=== PATIENT | female | born 1990 | race Caucasian/White ===

== ENCOUNTER 2018-07-12 21:22 | Emergency (ER) | payer OTHER ==
[2018-07-12 22:03] LABS: APPEARANCE,URINE SLIGHTLY-CLOUDY; BILIRUBIN,URINE NEGATIVE (NEGATIVE); COLOR,URINE YELLOW; GLUCOSE, URINE NEGATIVE (NEGATIVE); KETONES,URINE NEGATIVE (NEGATIVE); LEUKOCYTE ESTERASE,URINE NEGATIVE (NEGATIVE); NITRITE,URINE NEGATIVE (NEGATIVE); PROTEIN,URINE NEGATIVE (NEGATIVE); URINE SPECIFIC GRAVITY 1.018; UROBILINOGEN,URINE NEGATIVE mg/dL (<2.0)
--- NOTE | 2018-07-12 23:07 | ER Document Report ---
ED Medical Screen (RME) - General Chief Complaint: Vag Bleeding, +preg <12wks Stated Complaint: VAGINAL BLEEDING,CRAMPING Time Seen by Provider: 07/12/18 23:03 Notes: 28-year-old female LMP May 23 presents to the emergency de partment for a couple of days of spotting that is gotten worse. She states she has a history of 2 miscarriages and has 2 living children. She states that her blood type is A+ confirmed from previous pregnancies. She is also complaining of UTI symptoms that include frequency and flank pain. She says this pattern is typical of previous UTIs. I have greeted and performed a rapid initial assessment of this patient. A comprehensive ED assessment and evaluation of the patient, analysis of test results and completion of medical decision making process will be conducted by an additional ED providers. TRAVEL OUTSIDE OF THE [place] IN LAST 30 DAYS: No Physical Exam - Vital signs Vitals: Temp Pulse Resp BP Pulse Ox 98.6 F 70 18 99/61 L 99 07/12/18 21:48 07/12/18 21:48 07/12/18 21:48 07/12/18 21:48 07/12/18 21:48 - Respiratory Respiratory status: No respiratory distress Chest status: Nontender Breath sounds: Normal Chest palpation: Normal - Cardiovascular Rhythm: Regular Heart sounds: Normal auscultation, S1 appreciated, S2 appreciated Murmur: No - Abdominal Bowel sounds: Normal Course - Vital Signs Vital signs: Temp Pulse Resp BP Pulse Ox 98.6 F 70 18 99/61 L 99 07/12/18 21:48 07/12/18 21:48 07/12/18 21:48 07/12/18 21:48 07/12/18 21:48 - Laboratory Laboratory results interpreted by me: 07/12/18 21:45 Urine Blood SMALL H Urine HCG, Qual POSITIVE H
[2018-07-12 23:31] LABS: ABSOLUTE EOSINOPHILS # (AUTO) 0.2 10^3/uL (0.0-0.6); ABSOLUTE LYMPHOCYTES (AUTO) 3.1 10^3/uL (0.5-4.7); ABSOLUTE MONOCYTES (AUTO) 0.6 10^3/uL (0.1-1.4); BASOPHILS % (AUTO) 0.2 % (0-2); EOSINOPHILS % (AUTO) 1.9 % (0-6); HEMATOCRIT 38.5 % (36.0-47.0); HEMOGLOBIN 13.4 g/dL (12.0-15.5); LYMPHOCYTES % (AUTO) 34.4 % (13-45); MEAN CORPUSCULAR HEMOGLOBIN 28.3 pg (27.0-33.4); MEAN CORPUSCULAR HGB CONC 34.7 g/dL (32.0-36.0); MEAN CORPUSCULAR VOLUME 82 fl (80-97); PLATELET COUNT 183 10^3/uL (150-450); RED BLOOD COUNT 4.72 10^6/uL (3.72-5.28); RED CELL DISTRIBUTION WIDTH 14.4 % (11.5-14.0); SEGMENTED NEUTROPHILS % (AUTO) 56.5 % (42-78); TOTAL CELLS COUNTED % (AUTO) 100 %; WHITE BLOOD COUNT 8.9 10^3/uL (4.0-10.5)
--- NOTE | 2018-07-13 00:50 | RADIOLOGY REPORT (SQ) ---
EXAM DESCRIPTION: US TRANSVAGINAL COMPLETED DATE/TME: 07/12/2018 23:03 CLINICAL HISTORY: 28 years, Female, vaginal bleeding COMPARISON: None. TECHNIQUE: Transverse and longitudinal transvaginal sonographic images of the pelvis and a first trimester patient LIMITATIONS: None. FINDINGS: Uterus measures 10 x 6 x 6 cm. There is an intrauterine gestational sac with pole and yolk sac. heart tones obtained at 122 bpm. The maternal right ovary measures 2.6 x 1.8 x 1.9 cm, the left 2.3 x 1.0 x 1.3 cm. Normal flow to each ovary. No adnexal cyst or mass. No free fluid in the pelvis. Current ultrasound age is 6 weeks 3 days based on a mean crown-rump length of 0.64 cm. There is a small area of diminished echogenicity adjacent to the gestational sac measuring 1.3 x 1.3 x 0.5 cm which may reflect small subchorionic hemorrhage. IMPRESSION: Single live intrauterine gestation with current ultrasound age 6 weeks 3 days. Probable small subchorionic hemorrhage. Continued obstetric follow-up recommended copyright 2010 [employer]- All Rights Reserved
--- NOTE | 2018-07-13 01:19 | ER Document Report ---
ED General - General Chief Complaint: Vag Bleeding, +preg <12wks Stated Complaint: VAGINAL BLEEDING,CRAMPING Time Seen by Provider: 07/12/18 23:03 Primary Care Provider: JOSÉ SANDS MD [Primary Care Provider] - Follow up as needed Notes: Patient is a 28-year-old female at 6 weeks by LMP who presents with c oncerns of vaginal bleeding. Patient also reports a diffuse, mild, cramping pain to her lower abdomen. Symptoms started earlier today, have resolved since that time. States that she was concerned that she was having a miscarriage as she has had 2 nothing was noted to improve or worsen her symptoms. States the bleeding was spotting. Denies any fever or constitutional symptoms. No lightheadedness or syncope. Has not seen her MANAGER SCHEDULING regarding today's concerns. TRAVEL OUTSIDE OF THE [place] IN LAST 30 DAYS: No - Related Data Allergies/Adverse Reactions: mycins Allergy (Mild, Uncoded 07/13/18 01:12) Past Medical History - General Information source: Patient Last Menstrual Period: 05/23/18 - Social History Smoking Status: Never Smoker Frequency of alcohol use: None Drug Abuse: None Lives with: Spouse/Significant other Family History: Reviewed & Not Pertinent Patient has suicidal ideation: No Patient has homicidal ideation: No Renal/ Medical History: Denies: Hx Peritoneal Dialysis Past Surgical History: Reports: Hx Cholecystectomy Review of Systems - Review of Systems Notes: Constitutional: Negative for fever. HENT: Negative for sore throat. Eyes: Negative for visual changes. Cardiovascular: Negative for chest pain. Respiratory: Negative for shortness of breath. Gastrointestinal: Positive for lower abdominal cramping Genitourinary: Positive for vaginal bleeding Musculoskeletal: Negative for back pain. Skin: Negative for rash. Neurological: Negative for headaches, weakness or numbness. 10 point ROS negative except as marked above and in HPI. Physical Exam - Vital signs Vitals: Temp Pulse Resp BP Pulse Ox 98.6 F 70 18 99/61 L 99 07/12/18 21:48 07/12/18 21:48 07/12/18 21:48 07/12/18 21:48 07/12/18 21:48 Interpretation: Normal Notes: PHYSICAL EXAMINATION: GENERAL: Well-appearing, well-nourished and in no acute distress. HEAD: Atraumatic, normocephalic. EYES: Pupils equal round and reactive to light, extraocular movements intact, sclera anicteric, conjunctiva are normal. ENT: nares patent, oropharynx clear without exudates. Moist mucous membranes. NECK: Normal range of motion, supple without lymphadenopathy LUNGS: Breath sounds clear to auscultation bilaterally and equal. No wheezes rales or rhonchi. HEART: Regular rate and rhythm without murmurs ABDOMEN: Soft, nontender, normoactive bowel sounds. No guarding, no rebound. No masses appreciated. EXTREMITIES: Normal range of motion, no pitting or edema. No cyanosis. NEUROLOGICAL: No focal neurological deficits. Moves all extremities spontaneously and on command. PSYCH: Normal mood, normal affect. SKIN: Warm, Dry, normal turgor, no rashes or lesions noted. Course - Re-evaluation Re-evalutation: 07/13/18 01:19 Patient presents with a mild amount of vaginal bleeding in the setting of a first trimester . Ultrasound does demonstrate a viable intrauterine . No active bleeding at time of presentation. She is Rh positive. Patient's abdominal exam is otherwise benign without any focal tenderness. I do not suspect an acute appendicitis, pyelonephritis, cystitis, or bowel obstruction. At this time will discharge with return precautions and follow-up recommendations. Verbal discharge instructions given a the bedside and opportunity for questions given. Medication warnings reviewed. Patient is in agreement with this plan and has verbalized understanding of return precautions and the need for primary care follow-up in the next 24-72 hours. - Vital Signs Vital signs: Temp Pulse Resp BP Pulse Ox 98.8 F 78 18 102/62 99 07/13/18 01:30 07/13/18 01:30 07/13/18 01:30 07/13/18 01:30 07/13/18 01:30 - Laboratory Result Diagrams: 07/12/18 23:10 Laboratory results interpreted by me: 07/12/18 07/12/18 07/12/18 21:45 23:10 23:10 RDW 14.4 H Beta HCG, Quant 29029.00 H Urine Blood SMALL H Urine HCG, Qual POSITIVE H Discharge - Discharge Clinical Impression: First trimester , Hemorrhage, , early Subchorionic hemorrhage Qualifiers: Fetus number: single or unspecified fetus Trimester: first trimester Qualified Code(s): O41.8X10 - Other specified disorders of amniotic fluid and membranes, first trimester, not applicable or unspecified Condition: Good Disposition: HOME, SELF-CARE Additional Instructions: Your ultrasound today shows a living intrauterine . Please follow closely with your primary care MANAGER SCHEDULING. Please return if you develop severe abdominal pain, bleeding that goes through more than 2 pads for more than 2 hours, pass out, or have any other symptoms that are concerning to you. Please follow-up closely with your OBGYN regarding todays visit. Referrals: JOSÉ SANDS MD [Primary Care Provider] - Follow up as needed
[2018-07-13 01:41] VITALS: BP 102/62
== END 2018-07-13 01:41 | disposition home or self-care (01) ==
LOC: ER 21:22
DX: O46.91 Antepartum hemorrhage, unspecified, first trimester (principal); O26.891 Other specified pregnancy related conditions, first trimester; R10.30 Lower abdominal pain, unspecified; Z3A.01 Less than 8 weeks gestation of pregnancy
CPT/HCPCS: 36415; 76817; 81001; 81025; 84702; 85025; 86900; 86901; 93976; 99284

== ENCOUNTER 2018-08-18 11:20 | Emergency (ER) | payer OTHER ==
--- NOTE | 2018-08-18 11:35 | ER Document Report ---
HPI - HPI Time Seen by Provider: 08/18/18 11:34 Pain Level: 4 Context: Patient is a 28-year-old female who presents to the emergency department with a chief complaint of left foot pain. She was moving a breakfast not and the bench that was underneath it fell on top of her left foot. This happened around 10:00 this morning. She admits to some bruising. She is 11/2 weeks . Past medical history includes depression, which she is on medications for. - CONSTITUTIONAL Constitutional: DENIES: Fever, Chills - EENT EENT: DENIES: Sore Throat, Ear Pain - NEURO Neurology: DENIES: Headache - CARDIOVASCULAR Cardiovascular: DENIES: Chest pain - RESPIRATORY Respiratory: DENIES: Trouble Breathing, Coughing - GASTROINTESTINAL Gastrointestinal: DENIES: Abdominal Pain, Nausea - REPRODUCTIVE Reproductive: REPORTS: : - MUSCULOSKELETAL Musculoskeletal: DENIES: Extremity pain, Back Pain, Neck Pain - DERM Skin Color: Normal Skin Problems: Bruise - Left foot Past Medical History - Social History Smoking Status: Never Smoker Family History: Reviewed & Not Pertinent Renal/ Medical History: Denies: Hx Peritoneal Dialysis Past Surgical History: Reports: Hx Cholecystectomy Vertical Provider Document - CONSTITUTIONAL Agree With Documented VS: Yes Exam Limitations: No Limitations General Appearance: No Apparent Distress - INFECTION CONTROL TRAVEL OUTSIDE OF THE [place] IN LAST 30 DAYS: No - HEENT HEENT: Atraumatic, Normocephalic - NECK Neck: Normal Inspection - CARDIOVASCULAR Cardiovascular: Regular Rhythm, Tachycardia Pulses: Normal: Brachial, Posterior tibial, Dorsalis pedis - BACK Back: Normal Inspection - MUSCULOSKELETAL/EXTREMETIES Musculoskeletal/Extremeties: FROM, Tender - NEURO Level of Consciousness: Awake, Alert, Appropriate Motor/Sensory: No Motor Deficit, No Sensory Deficit - DERM Integumentary: Warm - Bruise noted to dorsal aspect of left foot, Dry Course - Re-evaluation Re-evalutation: 08/18/18 12:45 Patient's x-ray is negative for any acute fracture. No vascular compromise on exam. She is able to move her toes. I do not suspect a tendon injury at this time. Do not suspect any sprain. She will continue to use the crutches she was using. She will rest the area, ice it, and elevate her foot if needed. She is in agreement with this plan. Verbal discharge instructions were given to the patient. They verbalized understanding. They are stable for discharge. - Vital Signs Vital signs: Temp Pulse Resp BP Pulse Ox 98.0 F 102 H 14 96/65 L 95 08/18/18 11:24 08/18/18 11:24 08/18/18 11:24 08/18/18 11:24 08/18/18 11:24 Discharge - Discharge Clinical Impression: Left foot pain Contusion of left foot Qualifiers: Encounter type: initial encounter Qualified Code(s): S90.32XA - Contusion of left foot, initial encounter Condition: Stable Disposition: HOME, SELF-CARE Additional Instructions: You were seen today in the emergency department for left foot pain. Likely, there is no open bones in her foot. Please follow-up with your primary care provider in regards to this visit. Please continue to use your crutches. You can take Tylenol 650 mg every 6 hours as needed for your pain. Rest the area, ice it, and elevate it as needed. Referrals: JOSÉ SANDS MD [Primary Care Provider] - Follow up as needed
[2018-08-18] MEDS ORDERED: ALBUTEROL SULFATE HFA (90 MCG/PUFF) 8 GM MDI (1 MDI/ER DISP) IH PRN (11:37)
[2018-08-18] MEDS ORDERED: ACETAMINOPHEN 325 MG TABLET PO ONE (11:59)
--- NOTE | 2018-08-18 12:41 | RADIOLOGY REPORT (SQ) ---
EXAM DESCRIPTION: FOOT LEFT COMPLETE COMPLETED DATE/TIME: 08/18/2018 12:31 pm REASON FOR STUDY: trauma COMPARISON: None. NUMBER OF VIEWS: Three views left foot. LIMITATIONS: None. FINDINGS: There is no acute or significant bone, joint or soft tissue abnormality. OTHER: No other significant finding. IMPRESSION: NORMAL STUDY. TECHNICAL DOCUMENTATION: JOB ID: [id number] Reading location - IP/workstation name: [email or web address]
[2018-08-18 12:55] VITALS: BP 99/63
== END 2018-08-18 12:53 | disposition home or self-care (01) ==
LOC: ER 11:20
DX: O9A.211 Injury, poisoning and certain other consequences of external causes complicating pregnancy, first trimester (principal); S90.32XA Contusion of left foot, initial encounter; W20.8XXA Other cause of strike by thrown, projected or falling object, initial encounter; Y93.89 Activity, other specified; O99.341 Other mental disorders complicating pregnancy, first trimester; F32.9 Major depressive disorder, single episode, unspecified; Z79.899 Other long term (current) drug therapy; Z3A.11 11 weeks gestation of pregnancy
CPT/HCPCS: 99283

== ENCOUNTER 2019-01-27 16:07 | Outpatient (CLI) | payer OTHER | END 2019-01-27 17:20 | disposition home or self-care (01) | LOC: LC 16:07 | PROVIDERS: ATTEND Obstetrics & Gynecology | PROC: 4A1HXCZ Monitoring of Products of Conception, Cardiac Rate, External Approach (ICD-10-PCS; principal; 2019-01-27) | DX: O36.8130 Decreased fetal movements, third trimester, not applicable or unspecified (principal); Z3A.34 34 weeks gestation of pregnancy | CPT/HCPCS: 59025 ==

== ENCOUNTER 2019-02-15 15:39 | Outpatient (CLI) | payer OTHER ==
--- NOTE | 2019-02-15 15:44 | Non Stress Test Report ---
Non Stress Test Datetime Report Generated by CPN: 02/15/2019 15:43 DEMOGRAPHIC EGA NST: 34.5 INDICATION Indication for Study: Decreased Movement VITAL SIGNS Temperature - NST: 98.1 Pulse - NST: 83 RESP - NST: 16 NBPSYS NST: 92 NBPDIA NST: 58 MONITORING Monitor Explained: Monitor Explained; Test Explained; Patient Verbalized Understanding Time on Monitor: 01/27/2019 16:18 Time off Monitor: 01/27/2019 17:18 NST Duration: 60 NST INTERVENTIONS NST Interventions: PO Hydration Physician Notified NST: Chayito Monroe, CNM BABY A: [id number] BABY A Movement : Present Contraction Frequency : irritability FHR Baseline : 130 Accelerations : 15X15 Decelerations : None Variability : Moderate 6-25bpm NST Review: Meets Criteria for Reactive NST NST Review and Verified By : Alfreda Castellanos RN NST Results: Reactive NST REPORT Report Trigger: Send Report
[2019-02-15] MEDS ORDERED: AZITHROMYCIN 250 MG TABLET PO ONE (16:18)
[2019-02-15] MEDS ORDERED: ONDANSETRON 4 MG TAB.RAPDIS PO ONE (16:19)
[2019-02-15] MEDS ORDERED: ONDANSETRON 4 MG TAB.RAPDIS ONE (16:22)
[2019-02-15 16:23] LABS: APPEARANCE,URINE CLEAR; BILIRUBIN,URINE NEGATIVE (NEGATIVE); COLOR,URINE YELLOW; GLUCOSE, URINE NEGATIVE (NEGATIVE); KETONES,URINE NEGATIVE (NEGATIVE); LEUKOCYTE ESTERASE,URINE TRACE (NEGATIVE); NITRITE,URINE NEGATIVE (NEGATIVE); PROTEIN,URINE NEGATIVE (NEGATIVE); URINE SPECIFIC GRAVITY 1.006; UROBILINOGEN,URINE NEGATIVE mg/dL (<2.0)
[2019-02-15] MEDS ORDERED: AZITHROMYCIN 1 GM SUSP PACKET PO ONE (16:25)
--- NOTE | 2019-02-15 16:29 | Non Stress Test Report ---
Non Stress Test Datetime Report Generated by CPN: 02/15/2019 16:28 DEMOGRAPHIC EGA NST: 37.3 INDICATION Indication for Study: Ordered by Provider MONITORING Monitor Explained: Monitor Explained; Test Explained; Patient Verbalized Understanding Time on Monitor: 02/15/2019 15:53 Time off Monitor: 02/15/2019 16:28 NST Duration: 35 NST INTERVENTIONS NST Interventions: None Physician Notified NST: Dr Isaiah BABY A Movement : Present Contraction Frequency : irregular FHR Baseline : 135 Accelerations : 15X15 Decelerations : None Variability : Moderate 6-25bpm NST Review: Meets Criteria for Reactive NST NST Review and Verified By : V Monk RN NST Results: Reactive NST REPORT Report Trigger: Send Report
[2019-02-15] MEDS ORDERED: AZITHROMYCIN 1 GM SUSP PACKET ONE (16:35)
[2019-02-15 16:42] LABS: URINE AMPHETAMINES SCREEN NEGATIVE; URINE BARBITURATES SCREEN NEGATIVE; URINE BENZODIAZEPINES SCREEN NEGATIVE; URINE COCAINE SCREEN NEGATIVE; URINE MARIJUANA (THC) SCREEN NEGATIVE; URINE METHADONE SCREEN NEGATIVE; URINE PHENCYCLIDINE SCREEN NEGATIVE
== END 2019-02-15 17:13 | disposition home or self-care (01) ==
LOC: LC 15:39
PROVIDERS: ATTEND Obstetrics & Gynecology
PROC: 4A1HXCZ Monitoring of Products of Conception, Cardiac Rate, External Approach (ICD-10-PCS; principal; 2019-02-15)
DX: O47.1 False labor at or after 37 completed weeks of gestation (principal); Z3A.37 37 weeks gestation of pregnancy
CPT/HCPCS: 59025; 81005; 80307; 84112; S0119; Q0144

== ENCOUNTER 2019-02-25 12:35 | Outpatient (CLI) | payer OTHER ==
[2019-02-25 13:14] LABS: APPEARANCE,URINE SLIGHTLY-CLOUDY; BILIRUBIN,URINE NEGATIVE (NEGATIVE); COLOR,URINE YELLOW; GLUCOSE, URINE NEGATIVE (NEGATIVE); KETONES,URINE NEGATIVE (NEGATIVE); LEUKOCYTE ESTERASE,URINE LARGE (NEGATIVE); NITRITE,URINE NEGATIVE (NEGATIVE); PROTEIN,URINE NEGATIVE (NEGATIVE); URINE SPECIFIC GRAVITY 1.008; UROBILINOGEN,URINE NEGATIVE mg/dL (<2.0)
[2019-02-25 13:35] LABS: URINE AMPHETAMINES SCREEN NEGATIVE; URINE BARBITURATES SCREEN NEGATIVE; URINE BENZODIAZEPINES SCREEN NEGATIVE; URINE COCAINE SCREEN NEGATIVE; URINE MARIJUANA (THC) SCREEN NEGATIVE; URINE METHADONE SCREEN NEGATIVE; URINE PHENCYCLIDINE SCREEN NEGATIVE
--- NOTE | 2019-02-25 14:23 | Non Stress Test Report ---
Non Stress Test Datetime Report Generated by CPN: 02/25/2019 14:23 DEMOGRAPHIC EGA NST: 38.6 INDICATION Indication for Study: Decreased Movement; Ordered by Provider MONITORING Monitor Explained: Monitor Explained; Test Explained; Patient Verbalized Understanding Time on Monitor: 02/25/2019 13:04 Time off Monitor: 02/25/2019 14:04 NST Duration: 60 NST INTERVENTIONS NST Interventions: PO Hydration; Reposition Patient Physician Notified NST: A. Whitlock, CNM BABY A: [id number] BABY A Movement : Present Contraction Frequency : irregular FHR Baseline : 135 Accelerations : 15X15 Decelerations : None Variability : Moderate 6-25bpm NST Review: Meets Criteria for Reactive NST NST Review and Verified By : Pawel Pacheco RN NST Results: Reactive NST REPORT Report Trigger: Send Report
== END 2019-02-25 14:14 | disposition home or self-care (01) ==
LOC: LC 12:35
PROVIDERS: ATTEND Obstetrics & Gynecology
PROC: 4A1HXCZ Monitoring of Products of Conception, Cardiac Rate, External Approach (ICD-10-PCS; principal; 2019-02-25)
DX: O36.8130 Decreased fetal movements, third trimester, not applicable or unspecified (principal); Z3A.38 38 weeks gestation of pregnancy
CPT/HCPCS: 59025; 80307; 81005

== ENCOUNTER 2019-03-04 19:57 | Outpatient (CLI) | payer OTHER ==
[2019-03-04 20:34] LABS: APPEARANCE,URINE CLEAR; BILIRUBIN,URINE NEGATIVE (NEGATIVE); COLOR,URINE YELLOW; GLUCOSE, URINE NEGATIVE (NEGATIVE); KETONES,URINE NEGATIVE (NEGATIVE); LEUKOCYTE ESTERASE,URINE LARGE (NEGATIVE); NITRITE,URINE NEGATIVE (NEGATIVE); PROTEIN,URINE NEGATIVE (NEGATIVE); URINE SPECIFIC GRAVITY 1.008; UROBILINOGEN,URINE NEGATIVE mg/dL (<2.0)
[2019-03-04 20:53] LABS: URINE AMPHETAMINES SCREEN NEGATIVE; URINE BARBITURATES SCREEN NEGATIVE; URINE BENZODIAZEPINES SCREEN NEGATIVE; URINE COCAINE SCREEN NEGATIVE; URINE MARIJUANA (THC) SCREEN NEGATIVE; URINE METHADONE SCREEN NEGATIVE; URINE PHENCYCLIDINE SCREEN NEGATIVE
--- NOTE | 2019-03-04 22:15 | Non Stress Test Report ---
Non Stress Test Datetime Report Generated by CPN: 03/04/2019 22:15 DEMOGRAPHIC EGA NST: 39.6 INDICATION Indication for Study: Ordered by Provider VITAL SIGNS Temperature - NST: 98.5 Pulse - NST: 82 RESP - NST: 17 NBPSYS NST: 101 NBPDIA NST: 64 MONITORING Monitor Explained: Monitor Explained; Test Explained; Patient Verbalized Understanding Time on Monitor: 03/04/2019 20:14 Time off Monitor: 03/04/2019 20:50 NST Duration: 36 NST INTERVENTIONS NST Interventions: PO Hydration Physician Notified NST: Dr. Gilliland BABY A: [id number] BABY A Movement : Present Contraction Frequency : irregular with irritability FHR Baseline : 145 Accelerations : 15X15 Decelerations : Variable Variability : Moderate 6-25bpm NST Review: Meets Criteria for Reactive NST NST Review and Verified By : Dwight Vivas RN NST Results: Reactive NST REPORT Report Trigger: Send Report
== END 2019-03-04 21:58 | disposition home or self-care (01) ==
LOC: LC 19:57
PROVIDERS: ATTEND Student in an Organized Health Care Education/Training Program
PROC: 4A1HXCZ Monitoring of Products of Conception, Cardiac Rate, External Approach (ICD-10-PCS; principal; 2019-03-04)
DX: O36.8330 Maternal care for abnormalities of the fetal heart rate or rhythm, third trimester, not applicable or unspecified (principal); O47.1 False labor at or after 37 completed weeks of gestation; Z3A.39 39 weeks gestation of pregnancy
CPT/HCPCS: 59025; 80307; 81005

== ENCOUNTER 2019-03-10 06:45 | Inpatient (IN) | payer OTHER ==
[2019-03-10] MEDS ORDERED: RINGERS SOLUTION,LACTATED 1,000 ML IV PRN (07:09)
[2019-03-10] MEDS ORDERED: RINGERS SOLUTION,LACTATED 1,000 ML IV ONE (07:09)
--- NOTE | 2019-03-10 07:58 | Admission Physical ---
Datetime Report Generated by CPN: 03/10/2019 07:57 CURRENT ADMISSION Chief Complaint: Scheduled Induction of Labor Indication for Induction: Not Applicable Indication for Induction- Other: Elective Admit Impression : Term, Intrauterine ; No Active Labor; Intact Membranes Admit Plan: Admit to Unit; Initiate Labor Induction Protocol ALLERGIES Medication Allergies: Yes Medication Allergies: erythromycin base/AL/VOMITING (02/15/2019) Latex: No Latex Allergies OBSTETRICAL HISTORY EDC: 03/05/2019 00:00 : 5 Para: 2 Term: 2 : 0 SAB: 2 IAB: 0 Ectopic: 0 Livin Cesareans: 0 VBACs: 0 Multiple Births: 0 Gestational Diabetes: No Rh Sensitization: No Incompetent Cervix: No IESHA: No Infertility: No ART Treatment: No Uterine Anomaly: No IUGR: No Hx Previous C/S: No Macrosomia: No Hx Loss/Stillborn: No PIH: No Hx : No Placenta Previa/Abruption: No Depression/PP Depression: Yes PTL/PROM: No Post Hemorrhage: No Current Procedures: Ultrasound; NST Obstetrical History Comments: G1- G2- G3- G4- G5- current SEE RECORDS Alcohol: No Marijuana : No Cocaine: No Other Illicit Drugs: No Cigarettes: Never Smoker. 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 Surgery: No Heart Disease: Yes Hosp/Surgery: Yes Autoimmune Disorder: No Anesthetic Complications: No Kidney Disease: No Abnormal Pap Smear: No Neuro/Epilepsy: No Psychiatric Disorders: Yes Other Medical Diseases: No Hepatitis/Liver Disease: No Significant Family History: No Varicosities/Phlebitis: No Trauma/Violence : No Thyroid Dysfunction: No Medical History Comments: Depression, anxiety, bipolar, gallbladder removed 2015, mitral valve dysfunction INFECTIOUS HISTORY Gonorrhea: No Genital Herpes: No Chlamydia: Yes Tuberculosis: No Syphilis: No Hepatitis: No HIV/AIDS Exposure: No Rash or Viral Illness: No HPV: No Infectious History Comments: chlamydia 02/13/2019 - NEYDA 02/28/2019 PHYSICAL EXAM General: Normal HEENT: Normal Neurologic: Normal Thyroid: Deferred Heart: Normal Lungs: Normal Breast: Deferred Back: Normal Abdomen: Normal Genitourinary Exam: Normal Extremities: Normal DTRs: Normal Pelvic Type: Adequate Vital Signs: Reviewed VAGINAL EXAM Dilatation: 2 Effacement: 50 Station: -2 Contraction Comments: rare MEMBRANES Membranes: Intact FETUS A EGA: 40.5 Monitoring: External US FHR- Baseline: 135 Variability: Moderate 6-25bpm Accelerations: 15X15 Presentation: Vertex Admit Comment: 28yo at 40+5ega presents for elective IOL. History of shoulder dystocia with 1st baby - 9#3oz. VAVD with that . no issues with 8# delivery G2. EFW 8#1oz on 02/28. on Prozac - sees psychiatrist in [facility]. + chlamydia two times during this . Rubella Non immune. History of syncopal episodes with blood draw and GTT. community development planner placed. Anticipate . IOL with pitocin. PLANS FOR LABOR AND DELIVERY Labor and Delivery: None Pain Management: Natural Feeding Preference: Both Benefit of Breast Feed Discussed: Yes INFORMED CONSENT Informed Consent Obtained: Vaginal Delivery; Induction of Labor; Risks, Benefits and Alternatives Discussed Signature: with User ID: [email or web address]
[2019-03-10 08:00] LABS: ABSOLUTE EOSINOPHILS # (AUTO) 0.2 10^3/uL (0.0-0.6); ABSOLUTE LYMPHOCYTES (AUTO) 2.5 10^3/uL (0.5-4.7); ABSOLUTE MONOCYTES (AUTO) 0.4 10^3/uL (0.1-1.4); ABSOLUTE NEUT (AUTO) 4.5 10^3/uL (1.7-8.2); BASOPHILS % (AUTO) 0.2 % (0-2); HEMOGLOBIN 9.5 g/dL (12.0-15.5); LYMPHOCYTES % (AUTO) 32.4 % (13-45); MEAN CORPUSCULAR HEMOGLOBIN 23.7 pg (27.0-33.4); MEAN CORPUSCULAR HGB CONC 32.7 g/dL (32.0-36.0); MEAN CORPUSCULAR VOLUME 73 fl (80-97); MONOCYTES % (AUTO) 5.9 % (3-13); PLATELET COUNT 140 10^3/uL (150-450); RED CELL DISTRIBUTION WIDTH 15.4 % (11.5-14.0); SEGMENTED NEUTROPHILS % (AUTO) 59.5 % (42-78); TOTAL CELLS COUNTED % (AUTO) 100 %; WHITE BLOOD COUNT 7.6 10^3/uL (4.0-10.5)
[2019-03-10 08:15] LABS: URINE AMPHETAMINES SCREEN NEGATIVE; URINE BARBITURATES SCREEN NEGATIVE; URINE BENZODIAZEPINES SCREEN NEGATIVE; URINE COCAINE SCREEN NEGATIVE; URINE MARIJUANA (THC) SCREEN NEGATIVE; URINE METHADONE SCREEN NEGATIVE; URINE PHENCYCLIDINE SCREEN NEGATIVE
[2019-03-10] MEDS ORDERED: OXYTOCIN/NORMAL SALINE 20 UNIT/1,000 ML RTUINJ IV PRN ×2 (08:19→16:01)
[2019-03-10] MEDS ORDERED: OXYTOCIN 10 UNIT/ML VIAL ONE (08:24)
[2019-03-10] MEDS ORDERED: MISOPROSTOL 0.2 MG TABLET ONE (08:24)
[2019-03-10] MEDS ORDERED: LIDOCAINE 1% INJ-PF (10 MG/ML) 30 ML SDV ONE (08:25)
[2019-03-10] MEDS ORDERED: OXYTOCIN/NORMAL SALINE 20 UNIT/1,000 ML RTUINJ ONE (08:25)
[2019-03-10 09:41] LABS: CHLAM PCR NOT DETECTED (NOT DETECT)
[2019-03-10] MEDS ORDERED: NALBUPHINE HCL INJ 10 MG/1 ML AMPULE INJ ONE (11:35)
[2019-03-10] MEDS ORDERED: NALBUPHINE HCL INJ 10 MG/1 ML AMPULE ONE (11:39)
[2019-03-10] MEDS ORDERED: EPHEDRINE SULFATE INJ 50 MG/1 ML AMPULE ONE (13:19)
[2019-03-10] MEDS ORDERED: FENTANYL/BUPIVACAINE/NS/PF 300 MCG/150 ML RTUINJ EPI ONE (13:20)
[2019-03-10] MEDS ORDERED: BUPIVACAINE HCL 0.25 % INJ/PF (2.5 MG/1 ML) 30 ML VIAL ONE (13:20)
[2019-03-10] MEDS ORDERED: METHYLERGONOVINE MALEATE INJ/PF 0.2 MG/1 ML AMPULE ONE (15:42)
[2019-03-10] MEDS ORDERED: ACETAMINOPHEN 650 MG SUPP.RECT PR PRN (16:01)
[2019-03-10] MEDS ORDERED: DIBUCAINE 1% OINTMENT 56 GM TP PRN (16:01)
[2019-03-10] MEDS ORDERED: MEASLES,MUMPS&RUBELLA VACC/PF 0.5 ML VIAL SUBCUT PRN (16:01)
[2019-03-10] MEDS ORDERED: GLYCERIN/WITCH HAZEL LEAF 1 EACH MED..WIPE TP PRN (16:01)
[2019-03-10] MEDS ORDERED: BENZOCAINE/MENTHOL AEROSOL SPRAY 56 ML TOP PRN (16:01)
[2019-03-10] MEDS ORDERED: NA PHOS,M-B/NA PHOS,DI-BA (ADULT) 133 ML ENEMA PR PRN (16:01)
[2019-03-10] MEDS ORDERED: PROMETHAZINE HCL INJ 25 MG/1 ML VIAL IV PRN (16:01)
[2019-03-10] MEDS ORDERED: PSEUDOEPHEDRINE HCL 30 MG TABLET PO PRN (16:01)
[2019-03-10] MEDS ORDERED: PROMETHAZINE HCL 25 MG SUPP.RECT PR PRN (16:01)
[2019-03-10] MEDS ORDERED: MAGNESIUM HYDROXIDE SUSP 30 ML UDCUP PO PRN (16:01)
[2019-03-10] MEDS ORDERED: DIPH/PERTUSS(ACELL)/TETANUS VAC/PF 0.5 ML SYR (>=10YO) IM PRN (16:01)
[2019-03-10] MEDS ORDERED: DIPHENHYDRAMINE HCL 25 MG CAPSULE PO PRN (16:01)
[2019-03-10] MEDS ORDERED: PROMETHAZINE HCL 25 MG TABLET PO PRN (16:01)
[2019-03-10] MEDS ORDERED: ACETAMINOPHEN WITH CODEINE #3 TABLET PO PRN (16:01)
[2019-03-10] MEDS ORDERED: MISOPROSTOL 0.2 MG TABLET PR ONE (16:01)
[2019-03-10] MEDS ORDERED: ONDANSETRON HCL INJ/PF 4 MG/2 ML SDV ONE (16:50)
--- NOTE | 2019-03-10 17:38 | Delivery Summary ---
Del Sum A-C Datetime Report Generated by CPN: 03/10/2019 17:38 DELIVERY PERSONNEL DELIVERY PERSONNEL: [id number] Delivery Doctor:: Chayito Monroe CNM Labor and Delivery Nurse:: Mady Castellanos RNlabel rewinder Nurse:: May Pacheco RN Tattoo Technician/BLOCK INSPECTOR: Nilda Saavedra, ST Additional Personnel: : YENNI Meehan MATERNAL INFORMATION Delivery Anesthesia: Epidural Medications After Delivery: Pitocin Bolus-Please Comment; Methergine 0.2mg IM; Cytotec 1000mcg Per Rectum/Vagina Meds After Delivery Comment: pitocin 20 units in 1 L NS bolusing per order Delivery QBL: 300 Maternal Complications: None Provider Comments: of voable male from OA to SERJIO over intact perineum, placed on mothers abd and she wants cord clamped right away, double clamped and cut by hsb spont delivery of grossly large placenta, uterine atony, resolved with massage, cytotec 600 mcg and methergine 0.2 mg IM FFFM, baby and mom remain in recovery in stable condition LABOR SUMMARY EDC: 03/05/2019 00:00 No. Babies in Womb: 1 Attempted: No Labor Anesthesia: Epidural LABOR INFORMATION Reason for Induction: Other Reason for Induction- Other: elective Onset of Labor: 03/10/2019 08:45 Complete Dilatation: 03/10/2019 14:43 Oxytocin: Induction Group B Beta Strep: negative Antibiotics # of Doses: 0 Antibiotics Time of Last Dose: n/a Name of Antibiotic Given: n/a Steroids Given: None Reason Steroids Not Administered: Not Applicable MEMBRANES Membranes Rupture Method: Artificial Rupture of Membranes: 03/10/2019 11:33 Length of Rupture (hr): 4.03 Amniotic Fluid Color: Clear Amniotic Fluid Amount: Small Amniotic Fluid Odor: Normal STAGES OF LABOR Stage 1 hr: 5 Stage 1 min: 58 Stage 2 hr: 0 Stage 2 min: 52 Stage 3 hr: 0 Stage 3 min: 4 Total Time in Labor hr: 6 Total Time in Labor min: 54 VAGINAL DELIVERY Episiotomy: None Laceration #1: None Laceration Extension #1: N/A Laceration Repair: Not Applicable Sponge Count Correct: N/A Sharps Count Correct: N/A BABY A INFORMATION Delivery Date/Time: 03/10/2019 15:35 Method of Delivery: Vaginal Born in Route : No : N/A Forceps: N/A Vacuum Extraction: N/A Shoulder Dystocia : No PRESENTATION/POSITION BABY A Presentation: Cephalic Cephalic Presentation: Vertex Vertex Position: Right Occipital Anterior Breech Presentation: N/A PLACENTA INFORMATION BABY A Placenta Delivery Time : 03/10/2019 15:39 Placenta Method of Delivery: Spontaneous Placenta Status: Delivered SCORES BABY A Heart Rate 1 min: >100 bpm Resp Effort 1 min: Good Cry Reflex Irritability 1 min: Cough or Sneeze or Pulls Away Muscle Tone 1 min: Active Motion Color 1 min: Body [place], Extremities Blue Resuscitation Effort 1 min: Tactile Stimulation SCORE 1 MIN: 9 Heart Rate 5 min: >100 bpm Resp Effort 5 min: Good Cry Reflex Irritability 5 min: Cough or Sneeze or Pulls Away Muscle Tone 5 min: Active Motion Color 5 min: Body [place], Extremities Blue Resuscitation Effort 5 min: Tactile Stimulation SCORE 5 MIN: 9 INFORMATION BABY A Gestational Age at Delivery: 40.5 Gestational Status: Full Term- 39- 40.6 Weeks Outcome : Liveborn Condition : Stable Sex: Male IDENTIFICATION BABY A Verification Date/Time: 03/10/2019 15:57 ID Band Number: [id number] Mother's Name Verified: Yes RN Verifying Infant: CJulia Castellanos RN, SJulia Bernardon, RN WEIGHT/LENGTH BABY A Infant Birthweight (gm): 4238 Weight (lb): 9 Infant Weight (oz): 5 Length (in): 20.75 Infant Length (cm): 52.71 CORD INFORMATION BABY A No. Cord Vessels: 3 Nuchal Cord : N/A Cord Blood Taken: Yes-For Storage (Mom's Blood type +) Suction: None ASSESSMENT BABY A Infant Complications: Multiple Late Decels Physical Findings at Delivery: Within Normal Limits Skin to Skin: Yes Environmental Emergencies Assistant/ALS Called : No Infant Care By: Kavon Pacheco RN Transferred To: Remains with Mother BABY B INFORMATION : N/A
[2019-03-10] MEDS: DOCUSATE SODIUM 100 MG CAPSULE PO SCH (20:19)
[2019-03-10] MEDS: FERROUS SULFATE 325 MG TABLET PO SCH (20:19)
[2019-03-10] MEDS: ACETAMINOPHEN WITH CODEINE #3 TABLET PO PRN (20:19)
[2019-03-10] MEDS: IBUPROFEN 800 MG TABLET PO SCH (22:26)
[2019-03-10] MEDS: FAMOTIDINE 20 MG TABLET PO SCH (22:28)
[2019-03-11] MEDS: ACETAMINOPHEN WITH CODEINE #3 TABLET PO PRN ×2 (01:56→17:22)
[2019-03-11] MEDS: IBUPROFEN 800 MG TABLET PO SCH ×3 (05:08→21:03)
[2019-03-11 08:16] LABS: HEMATOCRIT 28.1 % (36.0-47.0); HEMOGLOBIN 9.3 g/dL (12.0-15.5); MEAN CORPUSCULAR HEMOGLOBIN 24.1 pg (27.0-33.4); MEAN CORPUSCULAR HGB CONC 33.1 g/dL (32.0-36.0); MEAN CORPUSCULAR VOLUME 73 fl (80-97); PLATELET COUNT 111 10^3/uL (150-450); RED BLOOD COUNT 3.86 10^6/uL (3.72-5.28); RED CELL DISTRIBUTION WIDTH 15.7 % (11.5-14.0); WHITE BLOOD COUNT 10.3 10^3/uL (4.0-10.5)
--- NOTE | 2019-03-11 09:20 | PDOC PROGRESS REPORT ---
Subjective-OB Progress Note for:: 03/11/19 - PP day #1, pt desires to go home later on today if possible.A+, rubella Non-immune, , Hx of Bipolar and anxiety, w/ hx +chlamydia during this - negative NEYDA noted Physical Exam (OB) Vital Signs: Temp Pulse Resp BP Pulse Ox 97.8 F 58 L 16 108/72 100 03/11/19 07:23 03/11/19 07:23 03/11/19 07:23 03/11/19 07:23 03/11/19 07:23 Intake & Output 03/10/19 03/11/19 03/12/19 06:59 06:59 06:59 Intake Total 600 Balance 600 Weight 62.1 kg - General General Appearance: Appears well, Alert In distress: None - PIH/Pre-Eclampsia DTR's: 1 + Clonus: Negative Headache: Absent Epigastric Pain: No Visual Changes: No - Lochia Lochia Amount: Scant < 10 ml Lochia Color: Rubra/Red - Abdomen Description: Tender, Soft, Round Hernia Present: No Fundal Description: Firm, Midline Fundal Height: u/u - u/2 - Respiratory Respiratory Status: No respiratory distress - Abdominal Inspection: Normal Distension: No distension - Genitourinary Genitourinary Note: voiding - Extremities Upper extremity: Normal inspection Lower extremities: Normal inspection - Neurological Cognition: Normal Orientation: AAOx4 - Psychological Associated symptoms: Normal affect, Normal mood - Skin Skin Temperature: Warm Skin Moisture: Dry Objective-Diagnostic Laboratory: 03/11/19 07:33 03/11/19 07:33 WBC 10.3 RBC 3.86 Hgb 9.3 L Hct 28.1 L MCV 73 L MCH 24.1 L MCHC 33.1 RDW 15.7 H Plt Count 111 L Assessment and Plan(PN) - Assessment and Plan (1) Bipolar 1 disorder Is this a current diagnosis for this admission?: Yes (2) Chlamydia trachomatis infection during in third trimester Is this a current diagnosis for this admission?: Yes (3) Delivery normal Is this a current diagnosis for this admission?: Yes (4) Encounter for elective induction of labor Is this a current diagnosis for this admission?: Yes (5) History of shoulder dystocia in prior Is this a current diagnosis for this admission?: Yes - Time Spent with Patient Time with patient: Less than 15 minutes Medications reviewed and adjusted accordingly: Yes - Disposition Anticipated Discharge: Home Within: within 24 hours - will d/c home later on today if baby is allowed to go home, otherwise d/c home tomorrow
[2019-03-11] MEDS: FAMOTIDINE 20 MG TABLET PO SCH ×2 (09:34→21:03)
[2019-03-11] MEDS: DOCUSATE SODIUM 100 MG CAPSULE PO SCH ×2 (09:34→17:21)
[2019-03-11] MEDS: PRENATAL VITAMIN W DHA CAPSULE PO SCH (09:34)
[2019-03-11] MEDS: SENNOSIDES/DOCUSATE 8.6-50 MG 1 EACH TABLET PO SCH (09:34)
[2019-03-11] MEDS: FERROUS SULFATE 325 MG TABLET PO SCH (09:34)
[2019-03-12] MEDS: IBUPROFEN 800 MG TABLET PO SCH ×2 (05:20→13:26)
[2019-03-12 08:09] VITALS: BP 111/74
[2019-03-12] MEDS: SENNOSIDES/DOCUSATE 8.6-50 MG 1 EACH TABLET PO SCH (10:04)
[2019-03-12] MEDS: DOCUSATE SODIUM 100 MG CAPSULE PO SCH (10:04)
[2019-03-12] MEDS: PRENATAL VITAMIN W DHA CAPSULE PO SCH (10:04)
[2019-03-12] MEDS: FAMOTIDINE 20 MG TABLET PO SCH (10:05)
[2019-03-12] MEDS: FERROUS SULFATE 325 MG TABLET PO SCH (10:05)
[2019-03-12 12:15] LABS: HEMATOCRIT 31.4 % (36.0-47.0); HEMOGLOBIN 10.3 g/dL (12.0-15.5); MEAN CORPUSCULAR HEMOGLOBIN 23.8 pg (27.0-33.4); MEAN CORPUSCULAR HGB CONC 32.9 g/dL (32.0-36.0); MEAN CORPUSCULAR VOLUME 72 fl (80-97); PLATELET COUNT 159 10^3/uL (150-450); RED BLOOD COUNT 4.33 10^6/uL (3.72-5.28); RED CELL DISTRIBUTION WIDTH 15.8 % (11.5-14.0); WHITE BLOOD COUNT 9.6 10^3/uL (4.0-10.5)
--- NOTE | 2019-03-12 12:39 | PDOC DISCHARGE SUMMARY ---
Impression - Admit/DC Date/PCP Admission Date/Primary Care Provider: 03/10/19 06:45 OBI GALVAN MD Discharge Date: 03/12/19 - Discharge Diagnosis (1) Acute blood loss anemia Is this a current diagnosis for this admission?: Yes (2) Bipolar 1 disorder Is this a current diagnosis for this admission?: Yes (3) Delivery normal Is this a current diagnosis for this admission?: Yes (4) Encounter for elective induction of labor Is this a current diagnosis for this admission?: Yes (5) Gestational thrombocytopenia Is this a current diagnosis for this admission?: Yes (6) History of shoulder dystocia in prior Is this a current diagnosis for this admission?: Yes (7) Uterine atony Is this a current diagnosis for this admission?: Yes - Additional Information Resuscitation Status: Full Code Discharge Diet: As Tolerated, Regular Discharge Activity: Activity As Tolerated, Balance Activity w/Rest, No Lifting Over 10 Pounds, Pelvic Rest, No tub bath, Walk Frequently Referrals: OBI GALVAN MD [Primary Care Provider] - Prescriptions: Ibuprofen [Motrin 800 mg Tablet] 800 mg PO Q8HP PRN #20 tablet PRN Reason: For Pain Scale 1-3 Docusate Sodium [Colace 100 mg Capsule] 100 mg PO BID #60 capsule Ferrous Sulfate [Feosol 325 mg Tablet] 325 mg PO BID #60 tablet Home Medications: Vits96/Iron Fum/Folic [ Tablet] 1 each PO DAILY 01/27/19 Docusate Sodium [Colace 100 mg Capsule] 100 mg PO BID #60 capsule 03/12/19 Ferrous Sulfate [Feosol 325 mg Tablet] 325 mg PO BID #60 tablet 03/12/19 Ibuprofen [Motrin 800 mg Tablet] 800 mg PO Q8HP PRN #20 tablet 03/12/19 Results Laboratory Results: WBC 9.6 10^3/uL (4.0-10.5) 03/12/19 11:35 RBC 4.33 10^6/uL (3.72-5.28) 03/12/19 11:35 Hgb 10.3 g/dL (12.0-15.5) L 03/12/19 11:35 Hct 31.4 % (36.0-47.0) L 03/12/19 11:35 MCV 72 fl (80-97) L 03/12/19 11:35 MCH 23.8 pg (27.0-33.4) L 03/12/19 11:35 MCHC 32.9 g/dL (32.0-36.0) 03/12/19 11:35 RDW 15.8 % (11.5-14.0) H 03/12/19 11:35 Plt Count 159 10^3/uL (150-450) 03/12/19 11:35 Lymph % (Auto) 32.4 % (13-45) 03/10/19 07:43 Bracken % (Auto) 5.9 % (3-13) 03/10/19 07:43 Eos % (Auto) 2.0 % (0-6) 03/10/19 07:43 Baso % (Auto) 0.2 % (0-2) 03/10/19 07:43 Absolute Neuts (auto) 4.5 10^3/uL (1.7-8.2) 03/10/19 07:43 Absolute Lymphs (auto) 2.5 10^3/uL (0.5-4.7) 03/10/19 07:43 Absolute Monos (auto) 0.4 10^3/uL (0.1-1.4) 03/10/19 07:43 Absolute Eos (auto) 0.2 10^3/uL (0.0-0.6) 03/10/19 07:43 Absolute Basos (auto) 0.0 10^3/uL (0.0-0.2) 03/10/19 07:43 Seg Neutrophils % 59.5 % (42-78) 03/10/19 07:43 Urine Opiates Screen NEGATIVE 03/10/19 07:43 Urine Methadone Screen NEGATIVE 03/10/19 07:43 Ur Barbiturates Screen NEGATIVE 03/10/19 07:43 Ur Phencyclidine Scrn NEGATIVE 03/10/19 07:43 Ur Amphetamines Screen NEGATIVE 03/10/19 07:43 U Benzodiazepines Scrn NEGATIVE 03/10/19 07:43 Urine Cocaine Screen NEGATIVE 03/10/19 07:43 U Marijuana (THC) Screen NEGATIVE 03/10/19 07:43 RPR NONREACTIVE (NONREACTIVE) 03/10/19 07:43 Chlamydia DNA (PCR) NOT DETECTED (NOT DETECT) 03/10/19 07:00 N.gonorrhoeae DNA (PCR) NOT DETECTED (NOT DETECT) 03/10/19 07:00 Blood Type A POSITIVE 03/10/19 07:43 Antibody Screen NEGATIVE 03/10/19 07:43
== END 2019-03-12 13:43 | disposition home or self-care (01) | DRG 807 ==
LOC: LR 06:45 → 2S 18:07
PROVIDERS: ADMIT Student in an Organized Health Care Education/Training Program; ATTEND Student in an Organized Health Care Education/Training Program
PROC: 10E0XZZ Delivery of Products of Conception, External Approach (ICD-10-PCS; principal; 2019-03-10)
PROC: 10907ZC Drainage of Amniotic Fluid, Therapeutic from Products of Conception, Via Natural or Artificial Opening (ICD-10-PCS; 2019-03-10)
PROC: 3E0234Z Introduction of Serum, Toxoid and Vaccine into Muscle, Percutaneous Approach (ICD-10-PCS; 2019-03-12)
DX: O99.344 Other mental disorders complicating childbirth (principal); Z37.0 Single live birth; O76 Abnormality in fetal heart rate and rhythm complicating labor and delivery; O99.02 Anemia complicating childbirth; D64.9 Anemia, unspecified; F31.9 Bipolar disorder, unspecified; F41.9 Anxiety disorder, unspecified; Z86.19 Personal history of other infectious and parasitic diseases; Z3A.40 40 weeks gestation of pregnancy; O62.2 Other uterine inertia; Z23 Encounter for immunization; Z87.59 Personal history of other complications of pregnancy, childbirth and the puerperium
CPT/HCPCS: 36415; 80307; 85025; 85027; 86592; 86850; 86900; 86901; 87491; 87591; 90707; 94760; J2210; J2300; J2405; J2590; J3010; J3490

== ENCOUNTER 2020-01-11 17:10 | Emergency (ER) | payer OTHER ==
[2020-01-11 17:17] VITALS: BP 102/67
--- NOTE | 2020-01-11 17:32 | ER Document Report ---
ED Extremity Problem, Lower - General Chief Complaint: Ankle Injury Stated Complaint: LEFT FOOT PAIN, SWELLING Time Seen by Provider: 01/11/20 17:24 Primary Care Provider: RAJ METZGER JR, DO [ACTIVE PROVISIONAL STAFF] - Follow up as needed Mode of Arrival: Ambulatory Information source: Patient Notes: 29-year-old female presented to ED for complaint of left ankle pain. She states she rolled her ankle walking out of the front door. She states it might be an hour before I saw her. She states her last menstrual period was May 2018 she is breast-feeding her child. She states her pain is a 5 out of 5 sharp throbbing pain. REVIEW OF SYSTEMS: CONSTITUTIONAL : Denies fever, chills, or sweats. Denies recent illness. EENT: Denies eye, ear, throat, or mouth pain or symptoms. Denies nasal or sinus congestion. CARDIOVASCULAR: Denies chest pain. RESPIRATORY: Denies cough, cold, or chest congestion. Denies shortness of breath, difficulty breathing, or wheezing. GASTROINTESTINAL: Denies abdominal pain. Denies nausea, vomiting, or diarrhea. Denies constipation. Last BM: GENITOURINARY: Denies difficulty urinating, painful urination, burning, frequency, or blood in urine. FEMALE GENITOURINARY: Denies vaginal bleeding, abnormal or irregular periods. LMP: MUSCULOSKELETAL: Denies neck or back pain or joint pain or swelling. SKIN: Denies rash or skin lesions. HEMATOLOGIC : Denies easy bruising or bleeding. LYMPHATIC: Denies swollen, enlarged glands. NEUROLOGICAL: Denies altered mental status or loss of consciousness. Denies headache. Denies weakness or paralysis or loss of use of either side. Denies problems with gait or speech. Denies sensory or motor loss. PSYCHIATRIC: Denies anxiety or stress or depression. ALL OTHER SYSTEMS REVIEWED AND NEGATIVE. PHYSICAL EXAMINATION: GENERAL: Well-appearing, well-nourished and in no acute distress. HEAD: Atraumatic, normocephalic. EYES: Pupils equal round extraocular movements intact, conjunctiva are normal. ENT: Nares patent NECK: Normal range of motion LUNGS: No respiratory distress Musculoskeletal: Normal range of motion NEUROLOGICAL: Normal speech, normal gait. PSYCH: Normal mood, normal affect. SKIN: Warm, Dry, normal turgor, no rashes or lesions noted. TRAVEL OUTSIDE OF THE [place] IN LAST 30 DAYS: No - HPI Patient complains to provider of: Injury, Pain, Swelling Location: Ankle Occurred: Just prior to arrival Where: Home, Outdoors Onset/Duration: Sudden Quality of pain: Sharp Severity: Severe Pain Level: 5 Context: Twisted, Wearing shoes Recent injury: Possibly Associated symptoms: Painful ambulation Exacerbated by: Hanging down, Movement, Walking Relieved by: Elevation, Ice, Rest - Related Data Allergies/Adverse Reactions: erythromycin base Allergy (Mild, Verified 01/11/20 17:15) VOMITING mycins Allergy (Mild, Uncoded 01/11/20 17:15) Past Medical History - General Information source: Patient - Social History Smoking Status: Never Smoker Frequency of alcohol use: None Drug Abuse: None Lives with: Family Family History: Reviewed & Not Pertinent Patient has homicidal ideation: No - Past Medical History Cardiac Medical History: Reports: None Pulmonary Medical History: Reports: None EENT Medical History: Reports: None Neurological Medical History: Reports: None Endocrine Medical History: Reports: None Renal/ Medical History: Reports: None Malignancy Medical History: Reports: None GI Medical History: Reports: None Musculoskeletal Medical History: Reports None Skin Medical History: Reports None Psychiatric Medical History: Reports: Hx Anxiety, Hx Depression Traumatic Medical History: Reports: None Infectious Medical History: Reports: None Past Surgical History: Reports: Hx Cholecystectomy Physical Exam - Vital signs Vitals: Temp Pulse Resp BP Pulse Ox 97.9 F 87 16 102/67 100 01/11/20 17:16 01/11/20 17:16 01/11/20 17:16 01/11/20 17:16 01/11/20 17:16 Course - Re-evaluation Re-evalutation: 01/11/20 22:19 The patient is nontoxic appearing with stable vitals. They are afebrile. Ankle exam shows no deformities with no obvious ligament instability. There is a normal pulse and sensation distally. There is no redness or signs of infection. X-rays show no acute fracture per the radiologist. Patient had Saurabh wrap on from home but it was incorrectly applied. I did apply it correctly and then she was given a stirrup splint. She states she had crutches at home and did not need them. Patient will be instructed to follow-up with not better in 1 week, sooner for increasing pain, fever, redness, numbness, tingling, weakness, any further concerns. Patient will be instructed to rest, ice, elevate their ankle. - Vital Signs Vital signs: Temp Pulse Resp BP Pulse Ox 97.9 F 87 16 102/67 100 01/11/20 17:16 01/11/20 17:16 01/11/20 17:16 01/11/20 17:16 01/11/20 17:16 - Diagnostic Test Radiology reviewed: Image reviewed, Reports reviewed Procedures - Immobilization Left Ankle Time completed: 19:26 Immobilizer type: Ankle stirrup Performed by: PCT Post-Proc Neuro Vasc Exam: Normal Alignment checked and good: Yes Discharge - Discharge Clinical Impression: Left ankle sprain Qualifiers: Encounter type: initial encounter Involved ligament of ankle: unspecified ligament Qualified Code(s): S93.402A - Sprain of unspecified ligament of left ankle, initial encounter Condition: Stable Disposition: HOME, SELF-CARE Additional Instructions: SPRAINED ANKLE: Your sprained ankle results from stretching or tearing of the ligaments which support the ankle. This usually results from twisting the foot inward and under. The ligaments will require time and protection in order to heal properly. Many ankle sprains are quite disabling, and should be taken seriously. The usual treatment for an ankle sprain is cold packs; protection with tape, splints, or wraps; elevation; and staying off the ankle for at least a day. As the ankle improves, you can walk IF it's not painful to bear weight. Sports are best postponed until healing is complete. More serious sprains usually require strengthening exercises after early healing. Your physician has assessed the seriousness of the ligament injury to your ankle. However, the treatment may change, depending on how your ankle progresses. If further exams were recommended, it is important that you follow through. Call the doctor if your foot becomes numb, painful, or severely swollen. ANKLE STIRRUP SPLINT: You are to use an ankle brace called a stirrup splint. This type of brace allows you to place greater stresses on the ankle without risk of re-injury, and is often used for more severe ankle injuries such as avulsion fractures and ligament ruptures. The splint can be worn over a sock or tape. For proper support, wear the splint with a shoe over it. It's important that the splint fit properly. Adjust the heel tension, if needed. If your splint has air bladders, peel back the bottom of each air bladder, then move the Velcro attachment of the heel strap up or down. Air bladder pressure can be adjusted by pulling up the valve at the top, threading the air tube down into the main bladder, then blowing air into the bladder or squeezing it out. The two sides of the stirrup can be moved forward or back on your ankle by changing the attachment of the main straps. If you are unable to use the ankle comfortably in the splint, return for re-evaluation. ICE & ELEVATION: Apply ice packs frequently against the painful area. Many different schedules are recommended, such as "20 minutes on, 20 minutes off" or "one hour ice, two hours rest." If you need to work, you may need to go longer between ice treatments. You should plan to have the area ice packed AT LEAST one-fourth of the time. The ice should be applied over the wrap, tape, or splint, or over a layer of cloth -- not directly against the skin. Some ice bags have a built-in cloth and can be put directly on the skin. Your injured part should be elevated as much as possible over the next 48 hours. Try to keep the injury above the level of the heart. Avoid use of the injured area. Elevation and rest will decrease the swelling. USE OF [id number] IBUPROFEN: Ibuprofen (Advil, Nuprin, Medipren, Motrin IB) is a medication for fever and pain control. In addition, it has anti- inflammatory effects which may be beneficial, especially in the treatment of injuries. It's best to take ibuprofen with food. Persons with ulcer disease or allergy to aspirin should notify their physician of this before taking ibuprofen. Ibuprofen can be given every four to six hours, for a total of four doses daily. Age Pain or fever dose Antiinflammatory dose 6-8 yr 200 mg (1 tab) 200 mg (1 tab) 9-11 yr 200 mg (1 tab) 200-400 mg (1-2 tab) 11-14 yr 200-400 mg (1-2 tab) 400 mg (2 tab) 15-adult 400 mg (2 tab) 600 mg (3 tab) FOLLOW-UP CARE: If you have been referred to a physician for follow-up care, call the physicians office for an appointment as you were instructed or within the next two days. If you experience worsening or a significant change in your symptoms, notify the physician immediately or return to the Emergency Department at any time for re-evaluation. Referrals: RAJ METZGER JR, DO [ACTIVE PROVISIONAL STAFF] - Follow up as needed
--- NOTE | 2020-01-11 17:53 | RADIOLOGY REPORT (SQ) ---
EXAM DESCRIPTION: ANKLE LEFT COMPLETE IMAGES COMPLETED DATE/TIME: 01/11/2020 5:33 pm REASON FOR STUDY: rolled ankle , pain COMPARISON: Left foot x-ray 08/18/2018. NUMBER OF VIEWS: Three views. TECHNIQUE: AP, lateral, and oblique radiographic images acquired of the left ankle. LIMITATIONS: None. FINDINGS: MINERALIZATION: Normal. BONES: No acute fracture or dislocation. SOFT TISSUES: No soft tissue swelling. No radiopaque foreign body. IMPRESSION: No radiographic evidence for acute fracture at the left ankle. TECHNICAL DOCUMENTATION: JOB ID: [id number] [employer]- All Rights Reserved Reading location - IP/workstation name: [email or web address]
== END 2020-01-11 19:49 | disposition home or self-care (01) ==
LOC: ER 17:10
DX: S93.402A Sprain of unspecified ligament of left ankle, initial encounter (principal); X50.9XXA Other and unspecified overexertion or strenuous movements or postures, initial encounter; Y92.009 Unspecified place in unspecified non-institutional (private) residence as the place of occurrence of the external cause; Z88.1 Allergy status to other antibiotic agents
CPT/HCPCS: 99283